=== PATIENT | male | born 1990 | race Caucasian/White ===

== ENCOUNTER 2016-04-23 01:33 | Emergency (ER) | payer SELFPAY ==
[~2016-04-23] VITALS: Ht 175.2 cm; Wt 129.3 kg
[~2016-04-23 01:33] MED LIST: AMOXICILLIN500 M2 PO; AMOXICILLIN500 MG PO; ANAPROX DS550 MG PO; ATARAX25 MG PO; FLEXERIL10 MG PO; FLONASE ALLERG9.9 ML NS; KEFLEX500 MG PO; LIDEX 0.05% CRE15 GM T; MOTRIN800 MG PO; Motrin,Rufen800 MG PO; NO DAILY MEDS; PREDNISONE20 M1 PO; PREDNISONE20 MG PO
[2016-04-23 02:06] LABS: BASO # 0.1 10*3/uL (0.0-0.1); BASO % 0.3 % (0.0-1.0); EOS % 0.2 % (1.0-4.0); HEMATOCRIT 42.8 % (42.0-52.0); HEMOGLOBIN 15.6 g/dl (14.0-18.0); IG # 0.1 10*3/uL (0.0-0.1); LYMPH # 2.8 10*3/uL (1.3-4.4); LYMPH % 15.2 % (27.0-41.0); MEAN CELL VOLUME 84.8 fl (80.0-94.0); MEAN CORPUSCULAR HGB 30.9 pg (27.0-31.0); MEAN CORPUSCULAR HGB CONC 36.4 g/dl (33.0-37.0); MEAN PLATELET VOLUME 9.3 fl (9.6-12.3); MONO # 1.3 10*3/uL (0.1-1.0); NEUT # 14.1 10*3/uL (2.3-7.9); NEUT % 76.9 % (47.0-73.0); PLATELET COUNT AUTOMATED 331 10*3/uL (130-400); RED BLOOD COUNT 5.05 10*6/uL (4.50-5.90); RED CELL DISTRI WIDTH 11.7 % (0-14.5); WHITE BLOOD COUNT 18.4 10*3/uL (4.8-10.8)
[2016-04-23 02:21] LABS: ALBUMIN 4.5 gm/dl (3.1-4.5); ALKALINE PHOSPHATASE 80 U/L (45-117); BILIRUBIN, TOTAL 0.4 mg/dl (0.2-1.0); BUN 10 mg/dl (7-24); CARBON DIOXIDE 19 mmol/L (21-32); CHLORIDE 106 mmol/L (98-107); EST GLOM FILT AFRICAN AMERICAN > 60 ml/min; GLUCOSE 104 mg/dL (65-99); POTASSIUM 3.7 mmol/L (3.5-5.1); SGOT/AST 45 IU/L (3-35); SGPT/ALT 119 U/L (12-78); SODIUM 142 mmol/L (136-145); TOTAL PROTEIN 8.2 gm/dL (6.4-8.2)
[2016-04-23] MEDS ORDERED: ULTRAM50 MG PO (05:41)
[2016-04-23] MEDS ORDERED: ANTIBIOTIC O500 U/GM T (05:41)
== END 2016-04-23 05:53 | disposition home or self-care (01) ==
LOC: ED 01:33
PROVIDERS: Emergency Medicine Emergency Medical Services
DX: S01.122A Laceration with foreign body of left eyelid and periocular area, initial encounter (principal); S01.82XA Laceration with foreign body of other part of head, initial encounter; S50.02XA Contusion of left elbow, initial encounter; S40.012A Contusion of left shoulder, initial encounter; V89.2XXA Person injured in unspecified motor-vehicle accident, traffic, initial encounter; Y93.89 Activity, other specified; Y92.413 State road as the place of occurrence of the external cause; Y99.9 Unspecified external cause status

== ENCOUNTER 2017-07-25 14:25 | Emergency (ER) | payer SELFPAY ==
[~2017-07-25] VITALS: Ht 175.2 cm; Wt 127.0 kg
[~2017-07-25 14:25] MED LIST changes: +ANTIBIOTIC O500 U/GM T; +ULTRAM50 MG PO
[2017-07-25] MEDS ORDERED: Motrin,Rufen800 MG PO (14:42)
[2017-07-25] MEDS ORDERED: ULTRAM50 MG PO (16:37)
== END 2017-07-25 16:50 | disposition home or self-care (01) ==
LOC: ED 14:25
DX: S22.32XA Fracture of one rib, left side, initial encounter for closed fracture (principal); V89.2XXA Person injured in unspecified motor-vehicle accident, traffic, initial encounter; Y93.89 Activity, other specified; Y92.410 Unspecified street and highway as the place of occurrence of the external cause; Y99.8 Other external cause status

== ENCOUNTER 2023-05-07 11:00 | Emergency (ER) | payer SELFPAY ==
[~2023-05-07] VITALS: Ht 180.3 cm; Wt 141.5 kg
[2023-05-07] MEDS ORDERED: PREDNISONE20 M1 PO (11:55)
== END 2023-05-07 12:05 | disposition home or self-care (01) ==
LOC: ED 11:00
DX: M54.42 Lumbago with sciatica, left side (principal)

== ENCOUNTER 2024-06-28 18:12 | Emergency (ER) | payer BC ==
[~2024-06-28] VITALS: Ht 182.8 cm; Wt 136.1 kg
[2024-06-28] MEDS ORDERED: Acetaminophen/Hydrocodone HP 10/325 PO ONE (18:35)
[2024-06-28] MEDS ORDERED: HYDROCODONE-AC1 EACH PO (19:21)
[2024-07-01] MEDS ORDERED: HYDROCODONE-AC1 EAC1 PO (08:32)
== END 2024-06-28 19:25 | disposition home or self-care (01) ==
LOC: ED 18:12
DX: S82.452A Displaced comminuted fracture of shaft of left fibula, initial encounter for closed fracture (principal); S82.892A Other fracture of left lower leg, initial encounter for closed fracture; S93.02XA Subluxation of left ankle joint, initial encounter; Z79.899 Other long term (current) drug therapy; V86.56XA Driver of dirt bike or motor/cross bike injured in nontraffic accident, initial encounter; Y93.55 Activity, bike riding; Y92.488 Other paved roadways as the place of occurrence of the external cause; Y99.8 Other external cause status

== ENCOUNTER → 2024-07-01 | Day surgery (SDC) | payer BC ==
[2024-06-30 13:25] LABS: BUN 11 mg/dl (9-23); CHLORIDE 104 mmol/L (98-107); POTASSIUM 3.9 mmol/L (3.4-5.1)
[~2024-07-01] VITALS: Ht 182.8 cm; Wt 142.9 kg
[~2024-07-01] MED LIST changes: +Dexamethasone Sodium Phospha 4 MG/ML VIAL IV ONE; +HYDROCODONE-AC1 EAC1 PO; +HYDROCODONE-AC1 EACH PO; +Ketamine Hydrochloride 50 MG/5 ML SYRINGE IV ONE; +Ketorolac Tromethamine 30 MG/ML VIAL IV ONE; +Ketorolac Tromethamine 30 MG/ML VIAL ONE; +Lactated Ringer's Solution 1,000 ML IV ONE; +Lidocaine Hydrochloride 2% 5 ML SDV IV ONE; +Midazolam Hydrochloride 2 MG/2 ML VIAL IV ONE; +Ondansetron Hydrochloride 4 MG/2 ML VIAL IV ONE; +PROPOFOL 200 MG/20 ML VIAL IV ONE; +ROCURONIUM BROMIDE 50 MG/5 ML SYRINGE IV ONE; +Ropivacaine Hydrochloride 5 MG/ML 20 ML AMP IJ ONE; +SEVOFLURANE 250 ML BOT INH ONE; +SUGAMMADEX SODIUM 200 MG/2 ML VIAL IV ONE; +Succinylcholine Chloride 200 MG/10 ML SYRINGE IV ONE; +ceFAZolin sodium/sodium chlor 30 ML IV ONE; +dexmedeTOMIDine HCL 200 MCG/2 ML VIAL IV ONE; +fentaNYL CITRATE 100 MCG/2 ML VIAL IV ONE
[2024-07-01 07:30] VITALS: BP 157/81
[2024-07-01 10:35] VITALS: BP 133/56
[2024-07-01 10:50] VITALS: BP 107/26
[2024-07-01 11:05] VITALS: BP 121/57
[2024-07-01 11:15] VITALS: BP 129/77
[2024-07-01 11:35] VITALS: BP 126/79
== END | disposition home or self-care (01) ==
LOC: SDC 06-30 15:30
PROVIDERS: ATTEND Orthopaedic Surgery
DX: S82.842A Displaced bimalleolar fracture of left lower leg, initial encounter for closed fracture (principal); S93.422A Sprain of deltoid ligament of left ankle, initial encounter; S93.432A Sprain of tibiofibular ligament of left ankle, initial encounter; E66.01 Morbid (severe) obesity due to excess calories; Z68.41 Body mass index [BMI] 40.0-44.9, adult; V29.99XA Rider (driver) (passenger) of other motorcycle injured in unspecified traffic accident, initial encounter; Y93.55 Activity, bike riding; Y92.89 Other specified places as the place of occurrence of the external cause; Y99.8 Other external cause status

== ENCOUNTER → 2024-07-16 | Outpatient (CLI) | payer BC ==
[~2024-07-16] MED LIST changes: -Dexamethasone Sodium Phospha 4 MG/ML VIAL IV ONE; -Ketamine Hydrochloride 50 MG/5 ML SYRINGE IV ONE; -Ketorolac Tromethamine 30 MG/ML VIAL IV ONE; -Ketorolac Tromethamine 30 MG/ML VIAL ONE; -Lactated Ringer's Solution 1,000 ML IV ONE; -Lidocaine Hydrochloride 2% 5 ML SDV IV ONE; -Midazolam Hydrochloride 2 MG/2 ML VIAL IV ONE; -Ondansetron Hydrochloride 4 MG/2 ML VIAL IV ONE; -PROPOFOL 200 MG/20 ML VIAL IV ONE; -ROCURONIUM BROMIDE 50 MG/5 ML SYRINGE IV ONE; -Ropivacaine Hydrochloride 5 MG/ML 20 ML AMP IJ ONE; -SEVOFLURANE 250 ML BOT INH ONE; -SUGAMMADEX SODIUM 200 MG/2 ML VIAL IV ONE; -Succinylcholine Chloride 200 MG/10 ML SYRINGE IV ONE; -ceFAZolin sodium/sodium chlor 30 ML IV ONE; -dexmedeTOMIDine HCL 200 MCG/2 ML VIAL IV ONE; -fentaNYL CITRATE 100 MCG/2 ML VIAL IV ONE
== END | disposition home or self-care (01) ==
LOC: ORTHO 01:07
PROVIDERS: ATTEND Orthopaedic Surgery
DX: S82.842A Displaced bimalleolar fracture of left lower leg, initial encounter for closed fracture (principal); M79.89 Other specified soft tissue disorders; X58.XXXA Exposure to other specified factors, initial encounter; Y93.89 Activity, other specified; Y92.89 Other specified places as the place of occurrence of the external cause; Y99.8 Other external cause status

== ENCOUNTER → 2024-08-13 | Outpatient (CLI) | payer BC | END | disposition home or self-care (01) | LOC: ORTHO 01:11 | PROVIDERS: ATTEND Orthopaedic Surgery | DX: S82.432A Displaced oblique fracture of shaft of left fibula, initial encounter for closed fracture (principal); S82.841D Displaced bimalleolar fracture of right lower leg, subsequent encounter for closed fracture with routine healing; M79.89 Other specified soft tissue disorders; X58.XXXD Exposure to other specified factors, subsequent encounter; X58.XXXA Exposure to other specified factors, initial encounter; Y93.89 Activity, other specified; Y92.89 Other specified places as the place of occurrence of the external cause; Y99.8 Other external cause status ==

== ENCOUNTER → 2024-09-24 | Outpatient (CLI) | payer BC | END | disposition home or self-care (01) | LOC: ORTHO 01:13 | PROVIDERS: ATTEND Orthopaedic Surgery | DX: S82.841D Displaced bimalleolar fracture of right lower leg, subsequent encounter for closed fracture with routine healing (principal); M79.89 Other specified soft tissue disorders; M25.772 Osteophyte, left ankle; X58.XXXD Exposure to other specified factors, subsequent encounter ==

== ENCOUNTER → 2024-11-03 | Outpatient (CLI) | payer BC | END | disposition home or self-care (01) | LOC: ORTHO 02:35 | PROVIDERS: ATTEND Orthopaedic Surgery | DX: S93.422A Sprain of deltoid ligament of left ankle, initial encounter (principal); Z96.698 Presence of other orthopedic joint implants; X58.XXXA Exposure to other specified factors, initial encounter; Y93.89 Activity, other specified; Y92.89 Other specified places as the place of occurrence of the external cause; Y99.8 Other external cause status ==

== ENCOUNTER 2025-01-11 03:09 | Emergency (ER) | payer BC ==
[~2025-01-11] VITALS: Ht 182.8 cm; Wt 136.1 kg
== END 2025-01-11 04:53 | disposition short-term general hospital (02) ==
LOC: ED 03:09
DX: S42.021A Displaced fracture of shaft of right clavicle, initial encounter for closed fracture (principal); Z79.899 Other long term (current) drug therapy; V86.55XA Driver of 3- or 4- wheeled all-terrain vehicle (ATV) injured in nontraffic accident, initial encounter; Y93.89 Activity, other specified; Y92.488 Other paved roadways as the place of occurrence of the external cause; Y99.8 Other external cause status